=== PATIENT | female | born 1990 | race Asian ===

== ENCOUNTER 2019-02-23 16:19 | Outpatient (CLI) | payer BC ==
--- NOTE | 2019-02-23 16:40 | RAD ---
XR Finger(s) Rt Min 2 View History: Injury of right index finger Comparison: None. Findings: Mild soft tissue swelling along the distal phalanx of the index finger. No acute fracture o r malalignment. Impression: Mild soft tissue swelling without fracture nor malalignment.
== END 2019-02-23 16:20 | disposition home or self-care (01) ==
LOC: BICRAD 16:19
PROVIDERS: ATTEND Physician Assistant
DX: S69.91XA Unspecified injury of right wrist, hand and finger(s), initial encounter (principal); M79.89 Other specified soft tissue disorders